=== PATIENT | male | born 1935 | race Caucasian/White ===

== ENCOUNTER → 2017-12-12 | Outpatient (CLI) | payer MEDICARE, OTHER | END | disposition home or self-care (01) | LOC: ECHO 08:02 | DX: I08.3 Combined rheumatic disorders of mitral, aortic and tricuspid valves (principal); I48.2 Chronic atrial fibrillation (principal); I27.20 Pulmonary hypertension, unspecified; I10 Essential (primary) hypertension | CPT/HCPCS: 93306 ==

== ENCOUNTER → 2018-12-20 | Outpatient (CLI) | payer MEDICARE, OTHER ==
[2018-12-14 08:12] VITALS: BP 164/89
[~2018-12-20] MED LIST: AMIO200T4 PO; CELE200C PO; DIGO125T PO; DUTA0.5C PO; LEVO50TA5 PO; METO25TA4 PO; OLME40TA12 PO; OXYC1TAB19 PO; TAMS0.4C2 PO; TEMA15CA PO; TRIA1CAP3 PO; WARF-31 PO; ZOLP10TA4 PO
--- NOTE | 2018-12-20 08:48 | RAD ---
PQRS Compliance statement: One or more of the following individualized dose reduction techniques were utilized for this examination: 1. Automated exposure control. 2. Adjustment of the mA and/or kV according to patient size. 3. Use of iterative reconstruction technique. Indication:History of subdural hemorrhage. Follow-up. TECHNIQUE: CT head without IV contrast COMPARISON: 12/13/2018. FINDINGS: Interval improvement in previously seen right parafalcine subdural hematoma, currently the thickest portion measures 6 mm, previously 7 mm. Slight interval improvement in previously seen right anterior frontal lobe subdural hematoma measuring 4 mm, previously 5 mm. There is no midline shift. Mild atrophy. The ventricles and basal cisterns are within normal limits. No focal loss of jaeger-white differentiation. Orbits are within normal limits. No acute calvarial fractures. Visualized paranasal sinuses and mastoid air cells are clear. IMPRESSION: Overall improvement in subdural hematoma along the right falx cerebri and right anterior frontal lobe. No new bleed. Electronically signed by: Damon Croft DO (12/20/2018 8:45 AM) [facility]
== END | disposition home or self-care (01) ==
LOC: CT 08:02
PROVIDERS: ATTEND Neurological Surgery
DX: S06.5X0A Traumatic subdural hemorrhage without loss of consciousness, initial encounter (principal); W19.XXXA Unspecified fall, initial encounter; Y93.89 Activity, other specified; Y92.89 Other specified places as the place of occurrence of the external cause; Y99.8 Other external cause status
CPT/HCPCS: 70450